=== PATIENT | female | born 1940 | race Caucasian/White ===

== ENCOUNTER 2017-06-26 16:03 | Emergency (ER) | payer MEDICARE, MEDICAID ==
[~2017-06-26] VITALS: Ht 157.5 cm; Wt 64.1 kg
[2017-06-26 16:08] VITALS: Ht 157.5 cm; Wt 64.1 kg
--- NOTE | 2017-06-26 18:07 | RADRPT ---
PROCEDURE: XR Chest. CLINICAL INDICATION: COUGH TECHNIQUE: Single frontal view of the chest was obtained COMPARISON: None FINDINGS: The heart and mediastinum are within normal limits. Aortic calcifications are present. The lungs are clear. There is no pleural effusion or pneumothorax. The osseous structures are grossly unremarkable. IMPRESSION: 1. No acute cardiopulmonary disease. RPTAT:AAJJ Physician Pricilla Date Time Electronically viewed and signed by Physician Pricilla on 06/26/2017 18:07 QL/
[2017-06-26] MEDS ORDERED: UDROBDM PO (18:18)
[2017-06-26] MEDS ORDERED: ACET500C5 PO (18:18)
--- NOTE | 2017-06-26 18:21 | ERD ---
ER Documentation Chief Complaint Chief Complaint Pt with fever, vomiting, ST and back pain X 3 days HPI 77-year-old female presents with cough sore throat for last 3 days. She had one episode posttussive vomiting nonbilious nonbloody. She is here with her family member in the same dwelling with similar symptoms although the longer duration. She denies any chest pain, shortness breath, abdominal pain. ROS All systems reviewed and are negative except as per history of present illness. Medications Home Meds Active Scripts Guaifenesin-Dextromethorphan* (Robitussin* DM) 100MG/10MG/5ML Syrup, 5 ML PO Q4H Y for COUGH for 5 Days, ML Prov:EMMANUEL GOMEZ MD 06/26/17 Acetaminophen* (Tylophen*) 500 Mg Capsule, 1 CAP PO Q6H Y for PAIN AND OR ELEVATED TEMP, #15 CAP Prov:EMMANUEL GOMEZ MD 06/26/17 Allergies Allergies: Coded Allergies: No Known Allergy (Unverified , 01/22/14) PMhx/Soc Medical and Surgical Hx: pt denies Medical Hx, pt denies Surgical Hx History of Surgery: No Hx Alcohol Use: No Hx Substance Use: No Hx Tobacco Use: No Smoking Status: Never smoker Physical Exam Vitals Vital Signs Date Time Temp Pulse Resp B/P Pulse Ox O2 Delivery O2 Flow Rate FiO2 06/26/17 16:08 99.6 87 18 128/61 94 Physical Exam Const: [], [id number]. Head: Atraumatic Eyes: Normal Conjunctiva ENT: Normal External Ears, Nose and Mouth. TMs and oropharynx normal. Neck: Full range of motion..~ No meningismus. Resp: Clear to auscultation bilaterally Cardio: Regular rate and rhythm, no murmurs Abd: Soft, non tender, non distended. Normal bowel sounds Skin: No petechiae or rashes Back: No midline or flank tenderness Ext: No cyanosis, or edema Neur: Awake and alert Psych: Normal Mood and Affect Procedures/MDM Chest X-ray 1V Interpreted by me: Soft Tissue: No acute abnormalities Bones: No acute abnormalities Mediastinum/Cardiac Silhouette/Lungs: [No acute abnormalities] impression- normal 1 view chest x-ray Patient presents with signs and symptoms of acute URI, likely viral. She will be treated with Robitussin and Tylenol further observation at home and return precautions and primary care follow-up. The patient was stable with no new complaints during the ER course. Clinically, there is no current evidence to suggest meningitis, sepsis, acute abdomen, pneumonia, acute coronary syndrome, pulmonary embolism, or any other emergent condition appearing to require further evaluation or hospitalization. The patient should certainly return for any new or worsening symptoms per the aftercare instructions. They should otherwise follow-up with her primary care doctor for reevaluation this week. Departure Diagnosis: Primary Impression: URI, acute Condition: Stable Patient Instructions: Uri, Viral, No Abx (Adult) Additional Instructions: X-ray normal. Probablamente un virus que dura 2-4 jama. cheque otro vez en el proximo loreta para mas simptomas- vomito, dolor, mandy, problemas con respirando , o con grover doctor primario. EMMANUEL GOMEZ MD Jun 26, 2017 18:21
== END 2017-06-26 18:48 | disposition home or self-care (01) ==
LOC: FTE 16:03
DX: J06.9 Acute upper respiratory infection, unspecified (principal)
CPT/HCPCS: 71010